=== PATIENT | male | born 1975 | race African-American/Black ===

== ENCOUNTER 2016-10-11 08:35 | Emergency (ER) | payer MEDICAID ==
[~2016-10-11] VITALS: Ht 167.6 cm; Wt 75.0 kg
[~2016-10-11 08:35] MED LIST: TRAM50 PO
[2016-10-11 08:42] VITALS: BP 135/88; PULSE 91; RESP 20; TEMP 98.7; O2SAT 97
--- NOTE | 2016-10-11 09:05 | PD ---
HPI Chief Complaint: Injury Time Seen by Provider: 09:01 Travel History International Travel<30 days: No Contact w/Intl Traveler<30days: No Traveled to known affect area: No History of Present Illness HPI 41-year-old male presents to the emergency room for evaluation of right hand pain and swelling after punching a punching bag 2 days ago. Patient states he was boxing one week ago and had a little bit of pain at that time but 2 days ago while practicing, he strained states extreme pain over the fifth metacarpal and developed immediate swelling. He has not done anything or taken anything for his pain. Pain is worse with any range of motion of the hand. He denies paresthesias or loss of range of motion. PFSH Past Medical History Diminished Hearing: No Respiratory: Yes ( BRONCHITIS ) Immunizations Current: No Social History Alcohol Use: Yes (OCCASIONALLY) Tobacco Use: No (QUIT) Substance Use: No Allergies-Medications (Allergen,Severity, Reaction): Coded Allergies: No Known Allergies (Unverified , 10/11/16) Reported Meds & Prescriptions Reported Meds & Active Scripts Active Review of Systems Except as stated in HPI: all other systems reviewed are Neg Physical Exam Narrative GENERAL: Well-nourished, well-developed male in no acute distress. Afebrile. Ambulatory. SKIN: Warm and dry. No erythema or ecchymosis. HEAD: Normocephalic. EYES: No scleral icterus. No injection or drainage. NECK: Supple, trachea midline. No JVD or lymphadenopathy. .EXTREMITY: Right hand tender to palpation especially over the fifth metacarpal. Full range of motion in all joints. Mild to moderate edema over the right fifth metacarpal. 2+ radial pulse. Less than 2 second capillary refill distally. Data Data Last Documented VS Vital Signs Date Time Temp Pulse Resp B/P Pulse Ox O2 Delivery O2 Flow Rate FiO2 10/11/16 08:42 98.7 91 20 135/88 97 Orders Hand, Complete ([id number]) (10/11/16 ) [facility] Medical Decision Making Medical Screen Exam Complete: Yes Emergency Medical Condition: Yes Medical Record Reviewed: Yes Differential Diagnosis Fracture versus sprain versus strain versus contusion Narrative Course 41-year-old male presents to the emergency room for evaluation of right fifth metacarpal pain and swelling after punching a punching bag 2 days ago. Physical exam reveals mild to moderate edema over the fifth metacarpal which is extremely tender to palpation. Full range of motion of the right hand. Less than 2 second capillary refill distally. X-ray shows no acute bony abnormality. Patient placed in a Velcro wrist splint and told to follow up with orthopedist or return to the emergency room for worsening symptoms. Understands and agrees to this plan. Diagnosis Primary Impression: Contusion of right hand Qualified Code: S60.221A - Contusion of right hand, initial encounter Referrals: Orthopaedic Surgeon Patient Instructions: Contusion in Adults (ED), General Instructions Additional Instructions: Rest and drink plenty of fluids. Take ibuprofen with food as directed, as needed for pain. Elevate and apply ice to the affected area for 20 minutes at a time, as needed for pain and swelling. Follow-up with a primary care physician within one week. Return to the emergency room for worsening symptoms. Disposition: 01 DISCHARGE HOME Condition: Stable Ana Santos Oct 11, 2016 09:05
--- NOTE | 2016-10-11 09:33 | RADRPT ---
EXAM DATE/TIME: 10/11/2016 09:14 [facility] COMPARISON: No previous studies available for comparison. INDICATIONS : Fall pain over 4th and 5th knuckle, with swelling. MEDICAL HISTORY : None. SURGICAL HISTORY : None. ENCOUNTER: Initial ACUITY: 3 days PAIN SCORE: 10/10 LOCATION: Right hand. FINDINGS: Three view examination of the right hand demonstrates no soft tissue swelling, dislocation, or fractu re. The carpal bones appear intact. The interphalangeal and metacarpophalangeal joints are intact. Bony mineralization is normal. CONCLUSION: No acute disease. Troy Ahmadi MD on October 11, 2016 at 9:32 Board Certified Radiologist. This report was verified electronically.
== END 2016-10-11 09:55 | disposition home or self-care (01) ==
LOC: NEPB 08:35
DX: S60.221A Contusion of right hand, initial encounter (principal); R60.0 Localized edema; Z87.09 Personal history of other diseases of the respiratory system; Z87.891 Personal history of nicotine dependence; W21.89XA Striking against or struck by other sports equipment, initial encounter; Y93.71 Activity, boxing
CPT/HCPCS: 73130; 99283; L3908

== ENCOUNTER 2017-02-21 10:03 | Emergency (ER) | payer MEDICAID ==
[~2017-02-21] VITALS: Ht 167.6 cm; Wt 80.0 kg
[2017-02-21 10:04] VITALS: BP 142/99; PULSE 120; RESP 24; TEMP 98.1; O2SAT 98
--- NOTE | 2017-02-21 12:20 | PD ---
HPI Chief Complaint: Cold / Flu Symptoms Time Seen by Provider: 12:20 Travel History International Travel<30 days: No Contact w/Intl Traveler<30days: No Traveled to known affect area: No History of Present Illness HPI 41-year-old male presents to the ED for evaluation of 3 week history of fevers, sinus congestion, clear rhinorrhea, sore throat, nonproductive cough, nausea and vomiting. Gradual onset. Patient states that fever has been 102.6 by oral thermometer at home, last fever measured yesterday. He endorses multiple sick contacts, states all 5 of his children have been ill. He denies receiving this years influenza immunization. He denies chronic health problems, takes no daily medications. NKDA. PFSH Past Medical History Diminished Hearing: No Respiratory: Yes ( BRONCHITIS ) Immunizations Current: No Social History Alcohol Use: Yes (OCCASIONALLY) Tobacco Use: No (QUIT) Substance Use: No Allergies-Medications (Allergen,Severity, Reaction): Coded Allergies: No Known Allergies (Unverified , 02/21/17) Reported Meds & Prescriptions Reported Meds & Active Scripts Active Tessalon Perles (Benzonatate) 100 Mg Cap 100 Mg PO TID PRN Prednisone 20 Mg Tab 20 Mg PO DIRECTED 40 MG twice a day x 3 days, then 20 MG daily x 3 days, then 10 MG daily x 3 days Proair Hfa 8.5 GM Inh (Albuterol Sulfate) 90 Mcg/Act Aer 1 Puff INH Q6HR PRN 108 mcg/actuation Azithromycin 500 Mg Tab 500 Mg PO DAILY Review of Systems Except as stated in HPI: all other systems reviewed are Neg Physical Exam Narrative GENERAL: Well-nourished, well-developed, ill-appearing black male in no acute distress. SKIN: Warm and dry. HEAD: Normocephalic. Atraumatic. EYES: No scleral icterus. No injection or drainage. PERRLA. EOMI. ENT: Pearly bui tympanic membranes bilaterally. Nasal mucosa is moist. Oropharynx without erythema, edema or exudate. NECK: Supple, trachea midline. No JVD or lymphadenopathy. CARDIOVASCULAR: Regular rate and rhythm without murmurs, gallops, or rubs. RESPIRATORY: Breath sounds clear and equal bilaterally. No accessory muscle use. Wet sounding cough. GASTROINTESTINAL: Abdomen soft, non-tender, nondistended. + Bowel sounds MUSCULOSKELETAL: No cyanosis, or edema. Patient is ambulatory moves extremities spontaneously. BACK: Nontender without obvious deformity. No CVA tenderness. Data Data Last Documented VS Vital Signs Date Time Temp Pulse Resp B/P Pulse Ox O2 Delivery O2 Flow Rate FiO2 02/21/17 17:27 111 20 134/79 99 Room Air 02/21/17 10:04 98.1 Orders Complete Blood Count With Diff (02/21/17 12:25) Comprehensive Metabolic Panel (02/21/17 12:25) Influenzae A/B Antigen (02/21/17 12:25) Iv Access Insert/Monitor (02/21/17 12:25) Sodium Chlor 0.9% 1000 Ml Inj (Ns 1000 M (02/21/17 12:30) Ondansetron Inj (Zofran Inj) (02/21/17 12:30) Group A Rapid Strep Screen (02/21/17 12:25) Strep Culture (Group A) (02/21/17 12:35) Sodium Chlor 0.9% 1000 Ml Inj (Ns 1000 M (02/21/17 13:30) Electrocardiogram (02/21/17 13:58) Ckmb (Isoenzyme) Profile (02/21/17 13:58) Troponin I (02/21/17 13:58) Chest, Single Ap (02/21/17 13:58) Urinalysis - C+S If Indicated (02/21/17 14:05) D-Dimer (02/21/17 15:06) Ct Pulmonary Angiogram (02/21/17 16:18) Iohexol 350 Inj (Omnipaque 350 Inj) (02/21/17 17:44) Labs Laboratory Tests Test 02/21/17 02/21/17 02/21/17 12:45 14:45 15:20 White Blood Count 10.8 TH/MM3 Red Blood Count 4.84 MIL/MM3 Hemoglobin 15.3 GM/DL Hematocrit 44.7 % Mean Corpuscular Volume 92.2 FL Mean Corpuscular Hemoglobin 31.7 PG Mean Corpuscular Hemoglobin 34.3 % Concent Red Cell Distribution Width 14.3 % Platelet Count 337 TH/MM3 Mean Platelet Volume 8.1 FL Neutrophils (%) (Auto) 89.1 % Lymphocytes (%) (Auto) 7.2 % Monocytes (%) (Auto) 3.1 % Eosinophils (%) (Auto) 0.3 % Basophils (%) (Auto) 0.3 % Neutrophils # (Auto) 9.6 TH/MM3 Lymphocytes # (Auto) 0.8 TH/MM3 Monocytes # (Auto) 0.3 TH/MM3 Eosinophils # (Auto) 0.0 TH/MM3 Basophils # (Auto) 0.0 TH/MM3 CBC Comment DIFF FINAL Differential Comment Sodium Level 138 MEQ/L Potassium Level 3.9 MEQ/L Chloride Level 100 MEQ/L Carbon Dioxide Level 27.0 MEQ/L Anion Gap 11 MEQ/L Blood Urea Nitrogen 9 MG/DL Creatinine 1.06 MG/DL Estimat Glomerular Filtration 93 ML/MIN Rate Random Glucose 104 MG/DL Calcium Level 9.0 MG/DL Total Bilirubin 0.8 MG/DL Aspartate Amino Transf 72 U/L (AST/SGOT) Alanine Aminotransferase 81 U/L (ALT/SGPT) Alkaline Phosphatase 76 U/L Total Creatine Kinase 98 U/L Troponin I LESS THAN 0.02 NG/ML Total Protein 8.4 GM/DL Albumin 4.2 GM/DL Urine Color YELLOW Urine Turbidity CLEAR Urine pH 6.0 Urine Specific [place] 1.023 Urine Protein 30 mg/dL Urine Glucose (UA) NEG mg/dL Urine Ketones 40 mg/dL Urine Occult Blood NEG Urine Nitrite NEG Urine Bilirubin NEG Urine Urobilinogen LESS THAN 2.0 MG/DL Urine Leukocyte Esterase NEG Urine RBC LESS THAN 1 /hpf Urine WBC LESS THAN 1 /hpf Urine Squamous Epithelial <1 /hpf Cells Urine Mucus MOD /lpf Microscopic Urinalysis Comment CULT NOT INDICATED D-Dimer Quantitative (PE/DVT) 2.15 MG/L FEU [facility] Medical Decision Making Medical Screen Exam Complete: Yes Emergency Medical Condition: Yes Differential Diagnosis Viral syndrome versus influenza versus pharyngitis versus strep pharyngitis versus pneumonia versus PE versus other Narrative Course 41-year-old male presents to the ED for evaluation of 3 week history of fevers, sinus congestion, clear rhinorrhea, sore throat, nonproductive cough, nausea and vomiting. Gradual onset. Patient states that fever has been 102.6 by oral thermometer at home, last fever measured yesterday. He endorses multiple sick contacts, states all 5 of his children have been ill. He denies receiving this years influenza immunization. Heart rate 120, BP 145/90 on presentation. Physical exam reveals an ill-appearing black male in no acute distress. Chest clear to auscultation bilaterally. No appreciable M/R/G. Abdomen soft, nontender. No edema lower extremities. IV was established. Patient was administered 2L NS, 4 mg of Zofran IV. During the course of evaluation the patient began to complain of intermittent left-sided chest pain, described as a tightness. EKG, CXR, cardiac enzymes were added to the workup. CBC:WBC 10.4 81.9% neutrophils CMP: AST 72, ALT 81 Rapid strep: negative Influenza: negative EKG: Rate 114, sinus rhythm. CT interval 152, QRS 87, QTC 397 ms. Normal axis. Mild elevation of ST in V2. No STEMI. Reviewed by Dr. Zuluaga. CXR: No acute disease per radiology read. Cardiac enzymes: Negative 1. Ddimer: 2.15 CTA: No evidence of PE. No pulmonary infiltrates. Patient remains tachycardic despite 2 L fluid bolus. We'll treat for bronchitis. Patient prescribed short course of azithromycin, prednisone. He is provided with a rescue inhaler and Tessalon Perles. He is instructed to take all medication as prescribed, follow up with the primary care physician, return to the ED for worsening symptoms. He indicated understanding of the instructions and is agreeable to the care plan. He is stable and discharged home. Diagnosis Primary Impression: Bronchitis Referrals: Primary Care Physician Patient Instructions: Acute Bronchitis (ED), General Instructions Additional Instructions: Rest, hydrate. Take medications as prescribed. Follow up with your primary car provider. Return to the ED for any urgent or emergent medical condition. Med/Other Pt SpecificInfo: Prescription(s) given Scripts Benzonatate (Tessalon Perles)100 Mg [id number] Mg PO TID PRN (COUGH) #21 CAP Ref 0 Prov:Devon Zuluaga MD 02/21/17 Prednisone 20 Mg Tab20 Mg PO DIRECTED #11 TAB Ref 0 40 MG twice a day x 3 days, then 20 MG daily x 3 days, then 10 MG daily x 3 days Prov:Devon Zuluaga MD 02/21/17 Albuterol 8.5 GM Inh (Proair Hfa 8.5 GM Inh)90 Mcg/Act Aer1 Puff INH Q6HR PRN ( SHORTNESS OF BREATH) #1 INHALER Ref 0 108 mcg/actuation Prov:Devon Zuluaga MD 02/21/17 Azithromycin 500 Mg [id number] Mg PO DAILY #5 TAB Ref 0 Prov:Devon Zuluaga MD 02/21/17 Disposition: 01 DISCHARGE HOME Condition: Stable Peyton Gerardo February 21, 2017 12:20
[2017-02-21] MEDS ORDERED: SODIUM CHLOR 0.9% 1000 ML INJ 1,000 ML IV ONE ×2 (12:30→13:30)
[2017-02-21] MEDS ORDERED: ONDANSETRON HCL 4 MG/2 ML VIAL IV PUSH ONE (12:30)
[2017-02-21 13:03] LABS: AUTOMATED NEUTROPHIL # 9.6 TH/MM3 (1.8-7.7); BASOPHIL % 0.3 % (0.0-2.0); EOSINOPHIL % 0.3 % (0.0-4.0); HEMATOCRIT 44.7 % (39.0-51.0); HEMO FLAGS DIFF FINAL; LYMPH % 7.2 % (9.0-44.0); LYMPHOCYTE # 0.8 TH/MM3 (1.0-4.8); MEAN CELL VOLUME 92.2 FL (80.0-100.0); MEAN CORPUSCULAR HEMOGLOBIN 31.7 PG (27.0-34.0); MEAN CORPUSCULAR HGB CONC 34.3 % (32.0-36.0); MONO % 3.1 % (0.0-8.0); NEUT % 89.1 % (16.0-70.0); PLATELET COUNT 337 TH/MM3 (150-450); RED BLOOD COUNT 4.84 MIL/MM3 (4.50-5.90); RED CELL DISTRIBUTION WIDTH 14.3 % (11.6-17.2); WHITE BLOOD COUNT 10.8 TH/MM3 (4.0-11.0)
[2017-02-21 13:21] LABS: ALT (GPT) 81 U/L (12-78); ANION GAP 11 MEQ/L (5-15); AST (GOT) 72 U/L (15-37); BLOOD UREA NITROGEN 9 MG/DL (7-18); CHLORIDE 100 MEQ/L (98-107); GLOMERULAR FILTRATION RATE 93 ML/MIN (>89); POTASSIUM 3.9 MEQ/L (3.5-5.1); SODIUM (NA) 138 MEQ/L (136-145)
[2017-02-21 13:24] LABS: ALKALINE PHOSPHATASE 76 U/L (45-117); TOTAL BILIRUBIN ADULT 0.8 MG/DL (0.2-1.0)
--- NOTE | 2017-02-21 14:48 | RADRPT ---
EXAM DATE/TIME: 02/21/2017 14:16 [facility] COMPARISON: CHEST SINGLE AP, August 15, 2015, 13:03. INDICATIONS : Cough, congestion, vomiting for weeks, short of breath and chest pain today MEDICAL HISTORY : None. SURGICAL HISTORY : None. ENCOUNTER: Initial ACUITY: 3 weeks PAIN SCORE: 5/10 LOCATION: Bilateral chest FINDINGS: A single view of the chest demonstrates the lungs to be symmetrically aerated without evidence of mas s, infiltrate or effusion. The cardiomediastinal contours are unremarkable. Osseous structures are intact. CONCLUSION: No acute disease. No significant change has occurred. Walker Alba MD on February 21, 2017 at 14:45 Board Certified Radiologist. This report was verified electronically.
[2017-02-21 14:58] LABS: CREATINE KINASE 98 U/L (39-308)
[2017-02-21 15:08] VITALS: BP 125/79; PULSE 113; RESP 18; O2SAT 97
[2017-02-21 15:29] LABS: BLOOD, URINE NEG (NEG); COMMENT (UR) CULT NOT INDICATED; CULTURE IF INDICATED CULT NOT INDICATED; GLUCOSE,URINE NEG (NEG); KETONE, URINE 40 mg/dL (NEG); MUCUS URINE MOD /lpf (OCC); NITRITE,URINE NEG (NEG); SQUAMOUS EPITHELIAL CELL URINE <1 /hpf (0-5); URINE COLOR YELLOW (YELLW/STRAW)
[2017-02-21 17:27] VITALS: BP 134/79; PULSE 111; RESP 20; O2SAT 99
[2017-02-21] MEDS ORDERED: IOHEXOL 350 MG/ML 10 ML VIAL (for RAD DIAG) IV ONE (17:44)
--- NOTE | 2017-02-21 17:59 | RADRPT ---
EXAM DATE/TIME: 02/21/2017 17:41 [facility] COMPARISON: No previous studies available for comparison. INDICATIONS : Cough and congestion. Evaluate for emboli. IV CONTRAST: 50 cc Omnipaque 350 (iohexol) IV RADIATION DOSE: 9.08 CTDIvol (mGy) MEDICAL HISTORY : None SURGICAL HISTORY : None. ENCOUNTER: Initial ACUITY: 2 weeks PAIN SCALE: 5/10 LOCATION: Bilateral chest TECHNIQUE: Volumetric scanning of the chest was performed using a pulmonary embolism protocol MIP images were re constructed. Using automated exposure control and adjustment of the mA and/or kV according to patien t size, radiation dose was kept as low as reasonably achievable to obtain optimal diagnostic quality images. FINDINGS: PULMONARY ARTERIES: No filling defects are seen in the pulmonary arteries through the segmental level. LUNGS: There is no consolidation or pneumothorax . No concerning pulmonary nodule is visualized. PLEURAE: There is no pleural thickening or pleural effusion. MEDIASTINUM: There is good visualization of the great vessels of the middle mediastinum. No evidence of mediastin al or hilar adenopathy/mass. MUSCULOSKELETAL: Within normal limits for patient age. MISCELLANEOUS: The visualized upper abdominal organs demonstrate no acute abnormality. CONCLUSION: 1. No evidence of pulmonary embolism. 2. No acute pulmonary infiltrates. Walker Alba MD on February 21, 2017 at 17:53 Board Certified Radiologist. This report was verified electronically.
[2017-02-21] MEDS ORDERED: PRED20 PO (18:08)
[2017-02-21] MEDS ORDERED: ALBUAER3 INH (18:08)
[2017-02-21] MEDS ORDERED: BENZ100 PO (18:08)
[2017-02-21] MEDS ORDERED: AZIT500T2 PO (18:08)
[2017-02-21 19:11] VITALS: BP 164/79; PULSE 115; RESP 18; O2SAT 97
--- NOTE | 2017-02-22 15:18 | EKG ---
Date Performed: 02/21/2017 Time Performed: 14:30:16 PTAGE: 41 years EKG: SINUS TACHYCARDIA NONSPECIFIC T-WAVE ABNORMALITY ABNORMAL RHYTHM ECG Compared to the PREVIOUS TRACING sinus rate has increased PREVIOUS TRACIN08/15/2015 13.15 DOCTOR: Faheem Romero Interpretating Date/Time 02/22/2017 15:17:44
== END 2017-02-21 19:18 | disposition home or self-care (01) ==
LOC: NEPD 10:03
DX: J40 Bronchitis, not specified as acute or chronic (principal); R00.0 Tachycardia, unspecified
CPT/HCPCS: 71010; 71275; 80053; 81001; 82550; 84484; 85025; 85379; 87081; 87804; 87880; 93005; 96361; 96374; 99284; J2405; J7030; Q9967